=== PATIENT | male | born 1980 | race Caucasian/White ===

== ENCOUNTER 2019-04-22 17:49 | Emergency (ER) | payer MEDICAID ==
[~2019-04-22] VITALS: Ht 170.2 cm; Wt 105.2 kg
[2019-04-22 18:07] VITALS: BP_SYST 134
--- NOTE | 2019-04-22 18:15 | NUR ---
Patient triaged and placed in waiting room. VSS and patient appears in no acute distress at this time. Accompanied by caregiver, awaiting available bed, and MD notified of need for MSE.
--- NOTE | 2019-04-22 19:59 | NUR ---
[facility] Side rails up. Report given to FORTINO PANCHAL.
--- NOTE | 2019-04-22 20:15 | NUR ---
Pt complains of pain to left elbow and purple discoloration. Pt states he noticed it on Saturday and denies trauma. Noted peeling skin to surrounded skin. Pt states 6/10 pain took Ibuprofen this morning for pain with minor relief. No other injuries/complaints per patient or noted.
--- NOTE | 2019-04-22 20:22 | NUR ---
ER Dr. Thibodeaux at bedside examining patient.
[2019-04-22] MEDS ORDERED: SULFAMETHOXAZOLE/TRIMETHOPR DS 1 TABLET PO ONE (20:30)
--- NOTE | 2019-04-22 20:39 | NUR ---
Medication was given, pt tolerated well. No adverse reaction, will continue to monitor.
[2019-04-22 20:50] VITALS: BP_SYST 129
--- NOTE | 2019-04-22 20:50 | NUR ---
Note undone in EDM - 04/22/19 at 2228 by [email or web address] Patient given written and verbal discharge instructions and verbalizes understanding. ER MD discussed with patient the results and treatment provided. Patient in stable condition. ID arm band removed.IV catheter removed intact and dressing applied, no active bleeding. Rx of Bactrim and Ibuprofen given. Patient educated on pain management and to follow up with PMD. Pain Scale 0. Opportunity for questions provided and answered. Medication side effect fact sheet provided.
== END 2019-04-22 20:50 | disposition home or self-care (01) ==
LOC: SED 17:49
DX: M70.32 Other bursitis of elbow, left elbow (principal); E11.9 Type 2 diabetes mellitus without complications
CPT/HCPCS: 99283